=== PATIENT | female | born 1985 | race Caucasian/White ===

== ENCOUNTER → 2021-03-03 09:05 | Outpatient (CLI) | payer MEDICAID, SELFPAY ==
--- NOTE | 2021-03-03 09:08 | CT_ITS ---
STUDY: CT MAXILLOFACIAL SINUSES REASON FOR EXAM: Female, 35 years old. SINUSITIS RADIATION DOSAGE (If Supplied By Facility): CTDIvol = ( 33.06 ) mGy, DLP = ( 850.38 ) mGycm TECHNIQUE: The patient was scanned in a multi detector CT scanner. High resolution axial imaging was performed without the administration of intravenous contrast material. Sagittal and coronal images were reconstructed. Individualized dose optimization techniques were used for this CT. COMPARISON: None. FINDINGS: FRONTAL SINUSES: Normal aeration, without mucosal inflammatory disease. ETHMOIDAL SINUSES: Normal aeration, without mucosal inflammatory disease. MAXILLARY SINUSES: Normal aeration, without mucosal inflammatory disease. SPHENOIDAL SINUSES: Normal aeration, without mucosal inflammatory disease. There is mild mucoperiosteal thickening and narrowing at the bilateral ostiomeatal units. There is patency of the bilateral maxillary infundibuli with normal uncinate processes, ethmoid bullae, and hiatus semilunaris. Normal bilateral middle turbinates. Normal bilateral inferior turbinates. Normal midline nasal septum. There is patency of the bilateral nasal airways. There is moderate opacification of the right mastoid air cells. The left mastoid air cells are clear. The middle ear is clear bilaterally. The visualized osseous structures are normal. The visualized bilateral orbital contents are normal. CT/Sinus/Facial Bone IMPRESSION: Mild mucoperiosteal thickening and narrowing of the bilateral ostiomeatal units. There is moderate opacification of the right mastoid air cells. This may represent mastoiditis in the proper clinical setting. Electronically Signed: Winston Alvarez MD at 10:13 EDT Tel , Service support ,
== END ==
PROVIDERS: Referring Provider Otolaryngology; Visit Provider Otolaryngology
DX: J32.8 Other chronic sinusitis (principal)
CPT/HCPCS: 70486